=== PATIENT | male | born 1995 | race Caucasian/White ===

== ENCOUNTER 2020-03-28 18:31 | Inpatient (IN) | payer BC, SELFPAY ==
[~2020-03-28] VITALS: Ht 185.4 cm; Wt 77.1 kg
[~2020-03-28 18:31] MED LIST: BUPIVACAINE /EPINEPHRINE/PF 0.25% 30 ML VIAL INJ ONE; CLINDAMYCIN PHOSPHATE 900 MG/6 ML VIAL IV ONE; DEXAMETHASONE SOD PHOSPHATE 4 MG/ML VIAL IVP ONE; KETOROLAC TROMETHAMINE 30 MG VIAL IVP ONE; LR 1,000 ML IV.SOLN IV ONE; METOCLOPRAMIDE HCL 10 MG/2 ML VIAL IVP ONE; MIDAZOLAM HCL 5 MG/5 ML VIAL IVP ONE; NS IRRIG SOLN 1000 ML IR ONE; ONDANSETRON HCL 4 MG/2 ML VIAL IVP ONE; PROPOFOL 200MG/ 20ML VIAL (DIPRIVAN) IV ONE; ROCURONIUM BROMIDE 10 MG/ML (ZEMURON) IV ONE; SEVOFLURANE 15 MIN GAS INH ONE; SUCCINYLCHOLINE CHLORIDE 20 MG/ML(QUELICIN) IVP ONE; fentaNYL CITRATE/PF 100 MCG/2 ML AMP IVP ONE
[2020-03-28 19:25] VITALS: BP_SYST 127
[2020-03-28 19:54] LABS: BILIRUBIN,URINE NEGATIVE (NEGATIVE); BLOOD, URINE NEGATIVE (NEGATIVE); CLARITY/URINE CLEAR (CLEAR); COLOR,URINE YELLOW (YELLOW); GLUCOSE,URINE NEGATIVE (NEGATIVE); KETONES,URINE TRACE (NEGATIVE); LEUKOCYTE ESTERASE ,URINE NEGATIVE (NEGATIVE); NITRITE, URINE NEGATIVE (NEGATIVE); PH,URINE 8.5 (5.0-8.0); PROTEIN URINE NEGATIVE (NEGATIVE)
[2020-03-28 20:18] LABS: BASOPHILS # (AUTO) 0.1 K/uL (0.0-0.2); BASOPHILS % (AUTO) 0.5 % (0.0-2.0); HEMOGLOBIN 15.6 g/dL (14.0-18.0); LYMPHOCYTES # (AUTO) 0.5 K/uL (1.0-5.5); LYMPHOCYTES % (AUTO) 3.2 % (20.5-51.5); MEAN CORPUSCULAR HEMOGLOBIN 27 pg (27-31); MEAN CORPUSCULAR HGB CONC 33 % (32-36); MEAN CORPUSCULAR VOLUME 82 fL (79.0-98.0); MONOCYTES # (AUTO) 0.9 K/uL (0.0-1.0); MONOCYTES % (AUTO) 5.2 % (1.7-9.3); NEUTROPHILS % (AUTO) 91.1 % (40.0-70.0); PLATELET COUNT (AUTO) 190 K/uL (130-430); RED BLOOD CELL COUNT(AUTO) 5.71 MIL/uL (4.2-6.2); RED CELL DISTRIBUTION WIDTH 14.1 % (9.0-15.0); WHITE BLOOD COUNT (AUTO) 16.5 K/uL (4.8-10.8)
[2020-03-28 20:49] LABS: CALCIUM 8.8 mg/dL (8.4-11.0); CREATININE 0.96 mg/dL (0.55-1.30); POTASSIUM 4.5 mmol/L (3.5-5.1)
[2020-03-28 20:55] LABS: ALBUMIN 3.6 g/dL (3.4-4.8); BILIRUBIN,DIRECT 0.1 mg/dL (0.0-0.3); TOTAL BILIRUBIN 0.6 mg/dL (0.0-1.0)
[2020-03-28] MEDS ORDERED: NACL 0.9% 1,000 ML IV ONE (21:30)
[2020-03-28] MEDS: NORMAL SALINE 5 ML DISP.SYRIN IVF SCH ×2 (22:00→22:26)
[2020-03-28] MEDS ORDERED: ONDANSETRON HCL 4 MG/2 ML VIAL IVP ONE (22:30)
[2020-03-28] MEDS ORDERED: MORPHINE 4 MG/ML INJ. SYRINGE IVP ONE (22:30)
[2020-03-28] MEDS ORDERED: D5NS 1,000 ML IV SCH (23:28)
[2020-03-28] MEDS ORDERED: cefTRIAXone 1 GM in D5W 50 ML IV ONE (23:30)
[2020-03-28] MEDS ORDERED: metroNIDAZOLE 500 mg/NS 100 ML IV ONE (23:30)
[2020-03-28] MEDS ORDERED: cefTRIAXone 1 GM VIAL ONE (23:45)
[2020-03-29 01:00] LABS: PROTHROMBIN TIME 9.9 SECS (9.5-12.5)
[2020-03-29 01:14] VITALS: BP_SYST 113
[2020-03-29] MEDS ORDERED: FLU VACC QS2020-21 (6 mos & up) 0.5 ML/SYRINGE I.M. PRN (01:30)
[2020-03-29] MEDS ORDERED: ONDANSETRON HCL 4 MG/2 ML VIAL IVP PRN ×3 (02:00→10:30)
[2020-03-29] MEDS ORDERED: MORPHINE 4 MG/ML INJ. SYRINGE IVP PRN (02:00)
[2020-03-29] MEDS ORDERED: metroNIDAZOLE 500 mg/NS 100 ML IV ONE (05:14)
[2020-03-29] MEDS: metroNIDAZOLE 500 mg/NS 100 ML IV SCH ×2 (05:46→17:04)
[2020-03-29] MEDS: NORMAL SALINE 5 ML DISP.SYRIN IVF SCH ×3 (05:46→22:05)
[2020-03-29 08:00] VITALS: BP_SYST 122
[2020-03-29] MEDS ORDERED: LR 1,000 ML IV SCH (09:20)
[2020-03-29] MEDS ORDERED: MEPERIDINE HCL/PF 25 MG/ML DISP.SYRIN IVP PRN (09:30)
[2020-03-29] MEDS ORDERED: KETOROLAC TROMETHAMINE 30 MG VIAL IVP PRN (09:30)
[2020-03-29] MEDS ORDERED: HYDROmorphone 1 MG INJ. 1 MG/ML AMPUL IVP PRN ×2 (09:30→10:30)
[2020-03-29] MEDS ORDERED: HYDROcodone/ACETAMIN 5-325 MG TAB (NORCO/ VICODIN) PO PRN (10:30)
[2020-03-29] MEDS ORDERED: NALOXONE HCL 0.4 MG/ML AMP (NARCAN) IVP PRN ×2 (10:30)
[2020-03-29 11:49] VITALS: BP_SYST 102
[2020-03-29] MEDS: D5/0.45 NS 1,000 ML IV SCH ×2 (17:05→22:07)
[2020-03-29 20:00] VITALS: BP_SYST 92
[2020-03-29] MEDS ORDERED: cefTRIAXone 1 GM IVPB PREMIX 50 ML IV SCH (23:00)
[2020-03-30 00:05] VITALS: BP_SYST 98
[2020-03-30] MEDS: metroNIDAZOLE 500 mg/NS 100 ML IV SCH ×2 (01:02→14:25)
[2020-03-30] MEDS: NORMAL SALINE 5 ML DISP.SYRIN IVF SCH ×2 (06:04→13:18)
[2020-03-30] MEDS: D5/0.45 NS 1,000 ML IV SCH (06:04)
[2020-03-30 07:16] LABS: BASOPHILS % (AUTO) 0.2 % (0.0-2.0); HEMATOCRIT 37.2 % (36-54); HEMOGLOBIN 12.3 g/dL (14.0-18.0); LYMPHOCYTES # (AUTO) 1.3 K/uL (1.0-5.5); MEAN CORPUSCULAR HEMOGLOBIN 27 pg (27-31); MEAN CORPUSCULAR HGB CONC 33 % (32-36); MEAN CORPUSCULAR VOLUME 83 fL (79.0-98.0); MONOCYTES # (AUTO) 0.8 K/uL (0.0-1.0); MONOCYTES % (AUTO) 6.2 % (1.7-9.3); NEUTROPHILS # (AUTO) 10.6 K/uL (1.8-7.7); NEUTROPHILS % (AUTO) 83.6 % (40.0-70.0); PLATELET COUNT (AUTO) 142 K/uL (130-430); RED BLOOD CELL COUNT(AUTO) 4.51 MIL/uL (4.2-6.2); RED CELL DISTRIBUTION WIDTH 14.2 % (9.0-15.0); WHITE BLOOD COUNT (AUTO) 12.8 K/uL (4.8-10.8)
[2020-03-30 07:52] LABS: ALBUMIN 2.3 g/dL (3.4-4.8); CALCIUM 7.7 mg/dL (8.4-11.0); CREATININE 1.01 mg/dL (0.55-1.30); POTASSIUM 3.7 mmol/L (3.5-5.1); TOTAL BILIRUBIN 0.3 mg/dL (0.0-1.0)
[2020-03-30 08:00] VITALS: BP_SYST 108
[2020-03-30 12:00] VITALS: BP_SYST 121
[2020-03-30 14:57] VITALS: BP_SYST 118
[2020-03-30] MEDS ORDERED: DOCU-144 PO (15:37)
[2020-03-30] MEDS ORDERED: LEVO750T45 PO (15:37)
[2020-03-30] MEDS ORDERED: HYDR-4272 PO (15:41)
[2020-03-30 16:00] VITALS: BP_SYST 118
[2020-03-30 16:37] LABS: BASOPHILS # (AUTO) 0.1 K/uL (0.0-0.2); BASOPHILS % (AUTO) 0.6 % (0.0-2.0); EOSINOPHILS % (AUTO) 0.2 % (0.0-4.0); HEMATOCRIT 41.9 % (36-54); HEMOGLOBIN 14.1 g/dL (14.0-18.0); LYMPHOCYTES # (AUTO) 1.5 K/uL (1.0-5.5); LYMPHOCYTES % (AUTO) 13.8 % (20.5-51.5); MEAN CORPUSCULAR HEMOGLOBIN 28 pg (27-31); MEAN CORPUSCULAR HGB CONC 34 % (32-36); MEAN CORPUSCULAR VOLUME 83 fL (79.0-98.0); MONOCYTES # (AUTO) 0.9 K/uL (0.0-1.0); MONOCYTES % (AUTO) 8.5 % (1.7-9.3); NEUTROPHILS # (AUTO) 8.1 K/uL (1.8-7.7); NEUTROPHILS % (AUTO) 76.9 % (40.0-70.0); PLATELET COUNT (AUTO) 178 K/uL (130-430); RED BLOOD CELL COUNT(AUTO) 5.07 MIL/uL (4.2-6.2); RED CELL DISTRIBUTION WIDTH 14.3 % (9.0-15.0); WHITE BLOOD COUNT (AUTO) 10.6 K/uL (4.8-10.8)
== END 2020-03-30 21:08 | disposition home or self-care (01) | DRG 343 ==
LOC: SED 18:31 → SMU 23:28
PROVIDERS: ADMIT Surgery; ATTEND Surgery
PROC: 0DTJ4ZZ Resection of Appendix, Percutaneous Endoscopic Approach (ICD-10-PCS; principal; 2020-03-29 09:30)
DX: K35.80 Unspecified acute appendicitis (principal); Z20.828 Contact with and (suspected) exposure to other viral communicable diseases; Z88.1 Allergy status to other antibiotic agents; Z88.0 Allergy status to penicillin
CPT/HCPCS: 36415; 80048; 80053; 80076; 81003; 83690-TC; 85025; 85610-TC; 86886; 86900; 86901; 87040-TC; 87081; 88304; 94010; 96365; 96367; 96375; 99285; J0330; J0696; J1100; J1885; J1956; J2250; J2270; J2405; J2704; J2765; J3010; J3490; J7042; J7120